=== PATIENT | female | born 1940 | race Caucasian/White ===

== ENCOUNTER 2019-06-12 18:21 | Observation (INO) ==
[2019-06-12] MEDS ORDERED: Naloxone 0.4 MG/ML INJ IVP PRN ×2 (20:23→20:25)
[2019-06-12] MEDS ORDERED: Ringers Solution, Lactated 1,000 ML IVC SCH (20:30)
[2019-06-12 22:18] LABS: Bacteria,Urine Many per hpf (None-Few); Hyaline Casts,Urine None Seen per lpf (None-Few); RBC,Urine 0-3 per hpf (0-3); Squamous Epithelial Cell,Urine Many per lpf (None-Few)
[2019-06-12 22:31] LABS: Bilirubin,Urine Negative (Negative); Blood,Urine Negative (Negative); Clarity,Urine Cloudy (Clear); Color,Urine Yellow (Yellow); Glucose,Urine (UA) Normal (Normal); Ketones,Urine Negative (Negative); Leukocyte Esterase,Urine Small (Negative); Nitrite,Urine Positive (Negative); Protein,Urine Trace mg/dL (Neg-Trace); Specific Gravity,Urine 1.021 (1.010-1.025); Urobilinogen,Urine Normal (Normal)
[2019-06-13] MEDS: Ondansetron ODT 4 MG TAB.RAPDIS SL PRN ×2 (00:12→07:55)
[2019-06-13 02:46] LABS: Basophils # 0.1 K/mcL (0.0-0.2); Basophils % 0.4 %; Eosinophils # 0.1 K/mcL (0.0-0.6); Eosinophils % 0.7 %; Hematocrit 36.4 % (35.3-44.9); Hemoglobin 11.2 g/dL (11.5-15.4); Immature Granulocytes % 0.4 % (0-4); Lymphocytes # 2.5 K/mcL (0.6-4.6); Lymphocytes % 17.2 %; Mean Corpuscular HGB Conc 30.8 g/dL (31.6-35.5); Mean Corpuscular Hemoglobin 29.1 pg (28.0-33.3); Mean Corpuscular Volume 94.5 fL (83.0-100.0); Mean Platelet Volume 10.9 fL (9.4-12.4); Monocytes # 1.2 K/mcL (0.0-1.3); Monocytes % 8.2 %; Neutrophils # 10.6 K/mcL (1.6-8.9); Platelet Count 171 K/mcL (140-400); Red Blood Count 3.85 M/mcL (3.82-4.97); Red Cell Distribution Width 13.3 % (11.5-14.5); Segmented Neutrophils % 73.1 %; White Blood Count 14.6 K/mcL (4.3-11.1)
[2019-06-13 03:02] LABS: Alanine Aminotransferase 14 Units/L (7-52); Albumin 3.7 g/dL (3.5-5.7); Albumin/Globulin Ratio 1.4 (1.1-2.2); Alkaline Phosphatase 23 Units/L (34-104); Aspartate Amino Transferase 24 Units/L (13-39); BUN/Creatinine Ratio 19 (6-26); Bilirubin,Total 0.5 mg/dL (0.3-1.0); Blood Urea Nitrogen 20 mg/dL (8-23); Calcium 10.6 mg/dL (8.6-10.3); Carbon Dioxide 25 mEq/L (23-29); Chloride 106 mEq/L (98-107); Globulin 2.6 g/dL (2.4-3.5); Glucose 125 mg/dL (70-105); Magnesium 2.1 mg/dL (1.6-2.6); Osmolality,Calculated 288 (280-300); Phosphorous 3.4 mg/dL (2.7-4.5); Potassium 4.3 mEq/L (3.5-5.1); Sodium 137 mEq/L (136-145); Total Protein 6.3 g/dL (6.4-8.9); eGFR For African Americans > 60 (> 60); eGFR For Non-African Americans 50 (> 60)
[2019-06-13] MEDS ORDERED: Ringers Solution, Lactated 1,000 ML IVC SCH (08:15)
[2019-06-13] MEDS ORDERED: *HR* Propofol 200 MG/20 ML VIAL IVP ONE (09:00)
[2019-06-13] MEDS ORDERED: *HR* FentaNYL (PF) 100 MCG/2 ML VIAL ONE (09:00)
[2019-06-13] MEDS ORDERED: Ketorolac 15 MG/ML VIAL IVP ONE (09:08)
[2019-06-13] MEDS ORDERED: *HR* OxyCODONE Immed Rel 5 MG TABLET PO PRN (09:08)
[2019-06-13] MEDS ORDERED: *HR* Promethazine 25 MG/ML VIAL IVP PRN ×2 (09:08→13:01)
[2019-06-13] MEDS ORDERED: Ondansetron 4 MG/2 ML VIAL IVP ONE (09:08)
[2019-06-13] MEDS ORDERED: Scopolamine Patch 1.5 MG PATCH.TD72 ONE (09:11)
[2019-06-13] MEDS ORDERED: Famotidine 20 MG/2 ML VIAL ONE (09:11)
[2019-06-13] MEDS ORDERED: Scopolamine Patch 1.5 MG PATCH.TD72 TD ONE (09:15)
[2019-06-13] MEDS ORDERED: Acetaminophen IV 1,000 MG/100 ML INFUS..BTL ONE (09:17)
[2019-06-13] MEDS ORDERED: Lidocaine -MPF 2% 2 ML VIAL ONE (09:22)
[2019-06-13] MEDS ORDERED: Dexamethasone 4 MG/ML VIAL ONE (09:22)
[2019-06-13] MEDS ORDERED: *HR* Succinylcholine 200 MG/10 ML VIAL IVP ONE (09:22)
[2019-06-13] MEDS ORDERED: Ondansetron 4 MG/2 ML VIAL ONE (09:22)
[2019-06-13] MEDS ORDERED: ceFAZolin 2,000 MG in Water for inj. (sterile) 20 ML IVP ONE (09:56)
[2019-06-13] MEDS ORDERED: CeFAZolin Syr 2,000MG/20 ML 2,000 MG/20 ML SYRINGE IVPB ONE (10:15)
[2019-06-13] MEDS: *HR* HYDROmorphone PF 0.5 MG/0.5 ML SYRINGE IVP PRN ×3 (11:15→11:51)
[2019-06-13 11:37] LABS: Hematocrit 36.9 % (35.3-44.9); Hemoglobin 11.5 g/dL (11.5-15.4)
[2019-06-13] MEDS ORDERED: MOM Conc 10 ML UD.LIQ PO PRN (13:01)
[2019-06-13] MEDS ORDERED: Sennosides 8.6 MG TABLET PO PRN (13:01)
[2019-06-13] MEDS ORDERED: Naloxone 0.4 MG/ML INJ IVP PRN (13:01)
[2019-06-13] MEDS ORDERED: HYDROcodone BIT/Homatropine 5 MG TABLET PO PRN (13:01)
[2019-06-13] MEDS: Ringers Solution, Lactated 1,000 ML IVC SCH ×2 (13:29→15:55)
[2019-06-13] MEDS: Ascorbic Acid 500 MG TABLET PO SCH (16:58)
[2019-06-13] MEDS: ceFAZolin 2,000 MG in 0.9 % Sodium Chloride 100 ML IVPB SCH ×2 (16:58→23:16)
[2019-06-13] MEDS ORDERED: *HR* Heparin 5,000 UNIT/ML VIAL SQ SCH (18:00)
[2019-06-14 04:28] LABS: Basophils % 0.1 %; Hematocrit 35.5 % (35.3-44.9); Immature Granulocytes % 0.8 % (0-4); Lymphocytes # 1.9 K/mcL (0.6-4.6); Lymphocytes % 10.5 %; Mean Corpuscular Hemoglobin 29.3 pg (28.0-33.3); Mean Corpuscular Volume 94.7 fL (83.0-100.0); Mean Platelet Volume 11.1 fL (9.4-12.4); Monocytes # 0.9 K/mcL (0.0-1.3); Monocytes % 4.8 %; Neutrophils # 15.2 K/mcL (1.6-8.9); Platelet Count 179 K/mcL (140-400); Red Blood Count 3.75 M/mcL (3.82-4.97); Red Cell Distribution Width 13.2 % (11.5-14.5); Segmented Neutrophils % 83.8 %; White Blood Count 18.1 K/mcL (4.3-11.1)
[2019-06-14 04:52] LABS: Calcium 10.3 mg/dL (8.6-10.3); Potassium 4.3 mEq/L (3.5-5.1)
[2019-06-14] MEDS ORDERED: Aspirin Enteric Coated 81 MG Tablet PO SCH (09:00)
[2019-06-14] MEDS: Multivit/Ca/Min/Fe/FA 1 TAB TABLET PO SCH (09:59)
[2019-06-14] MEDS: Ascorbic Acid 500 MG TABLET PO SCH ×2 (09:59→15:41)
[2019-06-14] MEDS: Aspirin Enteric Coated 81 MG Tablet PO SCH (10:00)
[2019-06-14] MEDS: *HR* HYDROcodone/Acet 10/325 mg TABLET PO PRN ×2 (10:06→20:56)
[2019-06-14] MEDS: *HR* Heparin 5,000 UNIT/ML VIAL SQ SCH ×2 (14:33→20:50)
[2019-06-15 05:20] LABS: Basophils # 0.1 K/mcL (0.0-0.2); Basophils % 0.5 %; Eosinophils # 0.1 K/mcL (0.0-0.6); Eosinophils % 0.8 %; Hematocrit 32.4 % (35.3-44.9); Immature Granulocytes % 0.4 % (0-4); Lymphocytes % 25.8 %; Mean Corpuscular HGB Conc 30.9 g/dL (31.6-35.5); Mean Corpuscular Hemoglobin 29.3 pg (28.0-33.3); Mean Platelet Volume 11.5 fL (9.4-12.4); Monocytes # 1.3 K/mcL (0.0-1.3); Monocytes % 8.3 %; Neutrophils # 10.1 K/mcL (1.6-8.9); Platelet Count 166 K/mcL (140-400); Red Blood Count 3.41 M/mcL (3.82-4.97); Red Cell Distribution Width 13.7 % (11.5-14.5); Segmented Neutrophils % 64.2 %; White Blood Count 15.7 K/mcL (4.3-11.1)
[2019-06-15 05:40] LABS: BUN/Creatinine Ratio 26 (6-26); Blood Urea Nitrogen 26 mg/dL (8-23); Calcium 9.6 mg/dL (8.6-10.3); Carbon Dioxide 27 mEq/L (23-29); Chloride 108 mEq/L (98-107); Glucose 98 mg/dL (70-105); Osmolality,Calculated 295 (280-300); Potassium 3.8 mEq/L (3.5-5.1); Sodium 140 mEq/L (136-145); eGFR For African Americans > 60 (> 60); eGFR For Non-African Americans 54 (> 60)
[2019-06-15] MEDS: *HR* Heparin 5,000 UNIT/ML VIAL SQ SCH ×3 (05:41→20:33)
[2019-06-15] MEDS: Multivit/Ca/Min/Fe/FA 1 TAB TABLET PO SCH (08:43)
[2019-06-15] MEDS: *HR* HYDROcodone/Acet 10/325 mg TABLET PO PRN ×3 (08:44→20:37)
[2019-06-15] MEDS: Aspirin Enteric Coated 81 MG Tablet PO SCH (08:44)
[2019-06-15] MEDS: Ascorbic Acid 500 MG TABLET PO SCH ×2 (08:46→16:35)
[2019-06-16] MEDS: *HR* Heparin 5,000 UNIT/ML VIAL SQ SCH ×3 (07:12→20:58)
[2019-06-16] MEDS: Aspirin Enteric Coated 81 MG Tablet PO SCH (08:57)
[2019-06-16] MEDS: Multivit/Ca/Min/Fe/FA 1 TAB TABLET PO SCH (08:57)
[2019-06-16] MEDS: Ascorbic Acid 500 MG TABLET PO SCH ×2 (08:57→16:42)
[2019-06-16] MEDS: *HR* HYDROcodone/Acet 10/325 mg TABLET PO PRN ×2 (08:57→14:59)
[2019-06-16] MEDS: Ondansetron 4 MG/2 ML VIAL IVP PRN (15:00)
[2019-06-17] MEDS: *HR* Heparin 5,000 UNIT/ML VIAL SQ SCH (05:43)
[2019-06-17] MEDS: Aspirin Enteric Coated 81 MG Tablet PO SCH (08:28)
[2019-06-17] MEDS: Multivit/Ca/Min/Fe/FA 1 TAB TABLET PO SCH (08:28)
[2019-06-17] MEDS: *HR* HYDROcodone/Acet 10/325 mg TABLET PO PRN (08:29)
[2019-06-17] MEDS: Ascorbic Acid 500 MG TABLET PO SCH (08:29)
[2019-06-17] MEDS: Ondansetron 4 MG/2 ML VIAL IVP PRN (09:25)
[2019-06-17 10:55] VITALS: BP 117/75
== END 2019-06-17 16:00 ==
LOC: 3NENU → SUATTDRO 19:55
PROVIDERS: ADMIT Internal Medicine; ATTEND Internal Medicine